=== PATIENT | female | born 2000 | race African-American/Black ===

== ENCOUNTER 2024-04-19 12:51 | Emergency (ER) | payer SELFPAY ==
--- NOTE | ~2024-04-19 | XR_ITS ---
EXAMINATION: XR CHEST CLINICAL INFORMATION: cough, fever COMPARISON: None available. TECHNIQUE: 2 views of the chest were obtained. FINDINGS: No consolidation, pleural effusion or pneumothorax. No hyperinflation. Cardiomediastinal silhouette size is normal. Osseous structures are intact. XR/XR chest 2V IMPRESSION: No acute airspace disease. Small airway inflammatory disease cannot be excluded. Electronically signed by: Charles Latham MD 04/19/2024 01:40 PM EST
[2024-04-19 13:02] VITALS: BP 156/79; PULSE 104; RESP 20; TEMP 38.5; O2SAT 100; BMI 31.1
--- NOTE | 2024-04-19 13:02 | ED_ITS ---
HPI - URI/Sore Throat General Chief Complaint: Upper Respiratory Symptoms Stated Complaint: Cold Symptoms Time Seen by Provider: 04/19/24 15:10 Source: patient Mode of arrival: ambulatory Limitations: no limitations History of Present Illness ED Provider: Elgin Jones DO HPI Narrative: 23-year-old female with past medical history of mild asthma, otherwise healthy, presents to the emergency department for 3 days of cough, body aches and fevers. Patient states she has not had her influenza vaccination. She states she has not had to provide breathing treatments at home. She denies vomiting or diarrhea. She denies sore throat. She states she has a decreased appetite but is tolerating liquids. Related Data Allergies Allergy/AdvReac Type Severity Reaction Status Date / Time oxycodone Allergy Angioedema Verified 04/19/24 13:04 Review of Systems Review of Systems: Yes all other systems are reviewed and are negative [facility] Social History Social History Advance Directives: No Advance Directives Information Provided: Yes Do you have a plan to hurt others: No Plan Physical Exam Vital Signs: Vital Signs: Last Vital Signs Temp 98.3 F 04/19/24 16:01 Pulse 86 04/19/24 16:01 Resp 16 04/19/24 16:01 BP 134/78 04/19/24 16:01 Pulse Ox 99 04/19/24 16:01 O2 Del Method Room Air 04/19/24 16:01 BMI result Body Mass Index 31.1 Constitutional: ?Alert, oriented, speaking in full sentences HEENT: ?Normocephalic, atraumatic. ?Moist mucous membranes Eyes: ?PERRL, EOMI Neck: ?Supple, nontender Chest: ?No chest wall tenderness Respiratory: ?Lungs clear to auscultation, no increased work of breathing Cardio: ?Regular rate and rhythm, no murmur, 2+ radial and DP pulses symmetrically GI: ?Soft, nondistended, nontender Back: ?Normal range of motion, nontender Skin: ?No rash, no lesions Neuro: ?Alert and oriented to person, place and time, moves all 4 extremities, no focal deficits Extremities: ?No swelling or tenderness, full range of motion Psych: ?Calm, alert and cooperative, appropriate behavior Course Course Course Narrative: This is a Rapid Medical Exam performed in triage by Deja Lai PA-C. Full HPI, ROS and PE to be performed by primary ED provider. 23 yo F presenting to the ED c/o sore throat, cough, [place], myalgias, fever (Tmax 100.2). PE: febrile, uvula midline, taking in complete sentences Plan: viral testing, rapid strep Medications Administered Discontinued Medications Generic Name Dose Route Start Last Admin Trade Name Mariam PRN Reason Stop Dose Admin Ibuprofen 400 mg 04/19/24 13:03 04/19/24 13:07 Ibuprofen 400 Mg Tablet PO 04/19/24 13:04 400 mg ONCE ONE Administration Medical Decision Making Medical Decision Making MDM Narrative: Patient presenting with viral symptoms. She is positive for influenza A. I discussed the importance of vaccination in the future. She is maintaining hydration status. Chest x-ray per my independent interpretation shows no acute cardiopulmonary abnormality. She is not experiencing an asthma exacerbation. She is not a candidate for Tamiflu and does not have any significant comorbidities. Work note provided as well as instructions to continue fluids at home and acetaminophen as needed. Her vital signs show mild tachycardia expected with a fever here. We provided ibuprofen. She has no hypoxia or tachypnea. Patient is comfortable with this plan and stable for discharge. Lab Data Labs: Lab Results 04/19/24 Range/Units 13:29 Influenza Type A (PCR) POSITIVE A (Negative) Influenza Type B (PCR) NEGATIVE (Negative) RSV RNA Qual (PCR) NEGATIVE (Negative) SARS-CoV-2 RNA (RT-PCR) NEGATIVE (Negative) S. pyogenes GrpA TYSHAWN Negative (Negative) Discharge Plan Discharge Clinical Impression: Influenza Patient Disposition: Home, Self-Care Instructions: Influenza (ED) Additional Instructions: You have been diagnosed with the flu today. Continue taking 500-1000 mg of Tylenol every 8 hours at home as needed for fevers and body aches. It is important to stay well hydrated, consume plenty of fluids with electrolytes. This should get better within a week or 2. If you feel the symptoms are worsening and you have fevers persistent over the next 5 days or so, worsening difficulty breathing or any other acute concerns, return for re-evaluation. Stand Alone Forms: Work/School Release Interventions: ED Discharge Assessment Last Done: 04/19/24 16:01 Discharge Date/Time: 04/19/24 16:02 Print Language: Algerian
[2024-04-19] MEDS: Ibuprofen 400 MG TABLET PO (13:07)
[2024-04-19 13:41] LABS: IDNOW Serial# 08D9AD1C; Strep A Nucleic Acid Negative (Negative)
[2024-04-19 14:21] LABS: Influenza A PCR POSITIVE (Negative); Influenza B PCR NEGATIVE (Negative); Resp Syncy Virus RNA Qual PCR NEGATIVE (Negative); SARS COV2 PCR INHOUSE NEGATIVE (Negative)
--- OUTSIDE RECORDS SUMMARY | 2024-04-19 14:56 | XMS_ITS | Encounter Summary ---
Author Organization [facility] Address [address] [place] [id number] Phone Care Team Providers Care Network Announcer Name Role Phone Yokasta Guzman MD Primary Care Provider [phone] Encounter Details Date Type Department Care Team (Late st Contact Info) Description 05/06/2017 Conversion Encounter [facility] [address] [phone] Jewell Coleman MD [address] [id number] Social History Tobacco Use Types Packs/Day Years Used Date Smoking Tobacco: Never Assessed Comments Unknown Sex and Gender Information Value Date Recorded Sex Assigned at Female 05/11/2019 12:02 PM EST Legal Sex Female 12:16 PM EST Gender Identity Female 05/11/2019 12:02 PM EST Sexual Orientation Straight 05/11/2019 12 :02 PM EST documented as of this encounter Plan of Treatment Not on file documented as of this encounter Visit Diagnoses Not on filedocumented in this encounter Care Teams Network Announcer Relationship Specialty Start Date End Date Yokasta Guzman MD [address] [place] [address] PCP - General Pediatrics 03/30/19 12/22/23 documented as of this encounter
--- OUTSIDE RECORDS SUMMARY | 2024-04-19 14:56 | XMS_ITS | Clinical Summary ---
Author Organization [facility] Address [address] [place] [id number] Phone Care Team Providers Care Horticultural Services Supervisor Name Role Phone Unavailable Primary Care Provider Unavailabl e Allergies Active Allergy Reactions Criticality Noted Date Comments Environmental 05/11/2019 Medications Spacer/Aero-Hold ing Chambers (ARIAL CHAMBER) device Aerochamber Plus Flow-Vu,Medium Mask Active loratadine (CLARITIN) 10 MG tabletIndication s:Acute seasonal allergic rhinitis due to pollen Take 1 tablet (10 mg total) by mouth daily. 30 tablet 5 9 Active fluticasone (FLONASE) 50 MCG/ACT nasal sprayIndications :Acute seasonal allergic rhinitis due to pollen Administer 1 spray into each nostril daily. 1 Units 5 9 Active Additional Information Patient not taking.Reported on 05/11/2019 VENTOLIN HFA 108 (90 Base) MCG/ACT inhalerIndicatio ns:Moderate persistent asthma without complication Inhale 2 puffs every 4 (four) hours as needed for wheezing or shortness of breath (cough, prolonged URI, respiratory difficulties). 1 Units 0 Active Additional Information Patient not taking.Reported on 10/23/2022 Beclomethasone Diprop HFA (Qvar RediHaler) 80 MCG/ACT aerosolIndicatio ns:Mild persistent asthma with acute exacerbation Inhale 2 Inhalers 2 (two) times a day. 3 Inhaler 4 0 Active Additional Information Patient not taking.Reported on 10/23/2022 Active Problems Problem Noted Date Diagnosed Date Left ankle injury 09/26/2020 Overview (09/26/2020): [facility] and inversion injury resolving 09/2020 Snoring 05/16/2019 Overview (07/25/2020): Sleep study scheduled 05/23/19. Cancelled due to COVID and needs to be re- scheduled. Was FU to adenoids being removed and evaluating if ANYA resolved per Dr Guzman.Pt has ANYA and requested sleep study be rescheduled today. Influenza vaccination declined 05/11/2019 Allergic rhinitis 07/12/2017 Overview (07/25/2020): On flonase and claritin as of 03/2019 Now on zyrtec 07/2020 Asthma 07/12/2017 Overview (07/25/2020): Qvar as of 03/2019. No prior hospitalization. Hasn't needed oral steroids. Triggered by cats, URIs, cold weather, seasonal allergies Still on QVAR and albuterol. Well controlled 07/2020 Assessment & Plan (05/11/2019 11:01 AM EST): Reviewed importance of nose spray, will schedule repeat sleep study due to concerns for apnea persisting Attention deficit hyperactiv ity disorder, predominantly inattentive type 07/12/2017 Overview (07/25/2020): 10 mg Focalin in past, as of 05/25 no meds No longer on meds. And doing well in school. Assessment & Plan (05/11/2019 12:01 PM EST): Rick has 504. Encouraged her to talk to school administration about what can be done about history class Eczema 07/12/2017 Overview (07/25/2020): Derm referral 05/25 Skin under good control per mom. Assessment & Plan (05/11/2019 12:01 PM EST): Will put in request for referral as requested Wears glasses 01/14/2017 Resolved Problems Problem Noted Date Diagnosed Date Resolved Date Injury of left great toe 10/04/2018 Assessment & Plan (10/04/2018 1:07 PM EDT): Xray verbal negative , pain management rest, avoid further injury Tinea pedis of both feet 10/04/2018 Assessment & Plan (10/04/2018 1:09 PM EDT): Pt education on athletes foot hand out Hyperhidrosis of palms and soles 10/04/2018 04/04/2019 Assessment & Plan (10/04/2018 1:06 PM EDT): Will discuss in greater detail next visit in 1 week Immunizations Immunization Administration Dates Next Due DTaP 05/26/2007, 5,01/02/2004,07/12,02/26/2003 HPV Vaccine 9 Valent 11/25/2015,11/13/2014 Hep A, ped/adol 11/25/2015,11/13/2014 Hep B, ped/adol 08/02/2003,01/26/2003,2002 Hib (PRP-T) 01/14/2005, 4,07/13/2003,02/26 IPV 05/26/2007, 4,07/13/2003,02/26 Influenza, injectable, quadr ivalent, preservative free 01/17/2018,01/14/2017,11/25/2015,12/20 Influenza, injectable, trivalent 014,02/07/2009,01/14/2005,01/01 MMR 05/26/2007,01/02/2004 Meningococcal Conj (Menactra) MCV4P 05/11/2019,0 11/13/2014 Pneumococcal Conjugate 05/20/2006,2004,01/02/2004,07/12 Tdap 11/13/2014 Varicella 05/26/2007,01/02/2004 Family History Medical History Relation Name Comments Asthma Maternal Grandfather Prostate cancer Maternal Grandfather No Known Problems Maternal Grandmother Asthma Mother Asthma Mother's Brother Hypertension Mother's Brother Diabetes Neg Hx Heart disease (Premature) Neg Hx Seizures Neg Hx Relation Name Status Comments Brother Alive Father Alive Maternal Grandfather Alive prostat e disease, brain tumor Maternal Grandmother Alive Mother Alive Mother's Brother migraines Other Hypertensive di sorder maternal side Paternal Grandfather Alive Paternal Grandmother Alive early o nset dementia Sister Alive Social History Tobacco Use Types Packs/Day Years Used Date Smoking Tobacco: Never Smokeless Tobacco: Never Comments:Never Alcohol Use Standard Drinks/Week Comments No 0 (1 standard drink = 0.6 oz pur e alcohol) Hunger/Food Answer Date Recorded In the last 12 months, did y ou or your family ever eat less than you felt you should because there wasn't enough money for food? No 07/25/2020 Stable Housing Answer Date Recorded Are you worried that in the next 2 months you may not have stable housing? Yes 07/25/2020 Transportation Concerns Answer Date Rec orded In the last 12 months, have you or your family ever had to go without healthcare because you didn't have a way to get there? No 07/25/2020 Hazards in Home Answer Date Recorded Think about the place you li ve. Do you have problems with any of the following? Pests (mice or roaches), mold, no/not working smoke detectors, water leaks, no window guards. Yes 2020 Financing Utilities Answer Date Recorde d In the last 12 months, has t he electric, gas, oil, or water company threatened to shut off your services in your home? No 07/25/2020 Safety at Home Answer Date Recorded Are you or your family worried about feeling saf e in your home? No 07/25/2020 Outside Support Answer Date Recorded Do you feel that you need mo re support from other people or programs to help you care for yourself or your family? No 07/25/2020 Understanding Health Concerns Answer Da te Recorded Do you need help understandi ng your or your child's healthcare needs (diagnosis, medications, plan, etc.)? No 07/25/2020 Financing Health Concerns Answer Date R ecorded In the last 12 months, was t here a time when your child needed to see a doctor or get medications or supplies but could not because of cost? No 07/25/2020 Missing School or Work Answer Date Pj rded Did you or your child miss s chool or work because of a health problem that could have been avoided? No 07/25/2020 Comments No Sex and Gender Information Value Date Recorded Sex Assigned at Female 05/11/2019 12:02 PM EST Legal Sex Female 12:16 PM EST Gender Identity Female 05/11/2019 12:02 PM EST Sexual Orientation Straight 05/11/2019 12 :02 PM EST Last Filed Vital Signs Vital Sign Reading Time Taken Comments Blood Pressure 116/78 10/23/2022 2:56 PM EDT Pulse 66 01/10/2019 10:16 AM EST Temperature 36.6 ??C (97.9 ??F) 09/30/2022 2:56 PM ED T Respiratory Rate - - Oxygen Saturation 99% 12/15/2018 9:49 AM EDT Inhaled Oxygen Concentration - - Weight 85.8 kg (189 lb 4 oz) 10/23/2022 2:56 PM EDT Height 167.6 cm (5' 6 ) 10/23/2022 2:56 PM EDT Body Mass Index 30.55 10/23/2022 2:56 PM EDT Plan of Treatment Health Maintenance Due Date Last Done Comments Men B Vaccine (1 of 2 - Standard) 2018 Influenza Vaccines (#1) 2023 01/18/20 18, 01/14/2017, 11/25/2015, Additional history exists COVID-19 Vaccine (1 - 2023-2 5 season) 2023 DTaP,Tdap,and Td Vaccines (7 - Td or Tdap) 11/13/2024 11/13/2014, 05/26/2007, 01/14/2005, Additional history exists Hepatitis B Vaccines Completed 08/02/2003, 01/26/2003, 2002 HIB Vaccines Completed 01/14/2005, 12/07, 07/13/2003, Additional history exists Pneumococcal Vaccine Completed 05/20/2006, 01/14/2005, 01/02/2004, Additional history exists IPV Vaccines Completed 05/26/2007, 12/07, 07/13/2003, Additional history exists MMR Vaccines Completed 05/26/2007, 01/02/2004 Varicella Vaccines Completed 05/26/2007, 01/02/2004 HPV Vaccines Completed 11/25/2015, 11/13/2014 Hepatitis A Vaccines Completed 11/25/2015, 11/14/19 Meningococcal Vaccine Completed 05/11/2019, 015 Procedures * Due to [place] state law, this organization might not be sharing sensitive test results. Procedure Name Priority Date/Time Associated Diagnosis Comments CHLAMYDIA AND GONORRHEA, AMPLIFIED Routine 07/25/2020 11:26 AM EDT Encounter for screening examination for sexually transmitted disease from Last 3 Months or Most Recently Relevant to Health Maintenance Results * Due to [facility] law, this organization might not be sharing sensitive test results. * Chlamydia and Gonorrhoea, Amplified (07/25/2020 11:26 AM EDT) Chlamydia Trachomatis, DNA Probe NEGATIVE (NEG) [facility] Comment: No Chlamydia Trachomatis RNA detected in this patient's sample ? (REFERENCE RANGE/NORMAL VALUE: NOT DETECTED) ? Note: This test uses dielectric embossing machine operator- mediated amplification method to detect rRNA from C. Trachomatis URINE GC AMP PROBE NEGATIVE (NEG) [facility] Comment: No Neisseria Gonorrhoeae RNA detected in this patient's sample ? (REFERENCE RANGE/NORMAL VALUE: NOT DETECTED) ? NOTE: This test uses dielectric embossing machine operator-mediated amplification method to detect rRNA from N.Gonorrhoeae. A negative result does not preclude infection. In the case of a negative urine result, testing of an endocervical(female) or urethral (male) specimen is recommended if there is high clinical suspicion of infection. Due to very high sensitivity of Nucleic Acid Amplification Test, false positive results may occur. Therefore, specimen handling is extremely important. In patients in whom the disease is unlikely, additional sample for testing should be considered after an initial positive result. The performance characteristics of this test have not been evaluated in children. The Aptima Combo2 assay is not intended for the evaluation of suspected sexual abuse or for other medico-legal indications. The ordering provider should assess if the patient had consensual sex without risk of sexual abuse. Consult the [facility] if needed. Contact phone number . Therapeutic failure or success cannot be determined with the Aptima Combo2 assay since nucleic acid may persist following appropriate antimicrobial therapy. The Centers for Disease Control and Prevention (CDC) recommends confirmatory retesting using culture or a different nucleic acid amplification test when positive results occur, if indicated. Testing performed or reported by [facility], a Service of [facility], [address] [place] [address] Trae Murrell MD, Foster Care Therapist Urine (Urine) 07/25/2020 11: 26 AM EDT 07/25/2020 6:58 PM EDT Funmilayo Aguilar NP LAB MICROBIOLOGY - GENERAL ORD ERABLES Final Result [facility] from Last 3 Months or Most Recently Relevant to Health Maintenance Insurance [facility] Address: [address] [address] [place] [address] [facility] NON PCC [facility] NON PCC [facility]
--- OUTSIDE RECORDS SUMMARY | 2024-04-19 14:56 | XMS_ITS | Clinical Summary ---
Author Organization [facility] Address [address] [place] [address] Care Team Providers Care Systems Support Specialist Name Role Phone Unavailable Primary Care Provider Unavailabl e Social History Tobacco Use Types Packs/Day Years Used Date Smoking Tobacco: Never Assessed Comments Unknown Sex and Gender Information Value Date Recorded Sex Assigned at Not on file Legal Sex Female 5:59 PM EST Gender Identity Not on file Sexual Orientation Not on file Plan of Treatment Health Maintenance Due Date Last Done Comments Gonorrhea/Chlamydia Screening 2002 HPV Vaccines (1 - 3-dose series) 2017 DTaP,Tdap,and Td Vaccines (1 - Tdap) 2021 Hepatitis B Vaccines (1 of 3 - 19+ 3-dose series) 2021 COVID-19 Vaccine ( - 2023-2 5 season) 2023 Influenza Vaccine (#1) 2023 Cervical Cancer Screening: P ap Smear 12/26/2023 HIB Vaccines Aged Out No longer eligi ble based on patient's age to complete this topic Hepatitis A Vaccines Aged Out No long er eligible based on patient's age to complete this topic IPV Vaccines Aged Out No longer eligi ble based on patient's age to complete this topic MMR Vaccines Aged Out No longer eligi ble based on patient's age to complete this topic Meningococcal ACWY Vaccine Aged Out N o longer eligible based on patient's age to complete this topic Pneumococcal Vaccine: Pediat rics (0 to 5 Years) and At-Risk Patients (6 to 64 Years) Aged Out No longer eligible b ased on patient's age to complete this topic RSV Immunization Patients Un syeda 20 months Aged Out No longer eligible b ased on patient's age to complete this topic Varicella Vaccines Aged Out No longer eligible based on patient's age to complete this topic
[2024-04-19 15:49] VITALS: BP 134/78; PULSE 86; RESP 16; TEMP 36.8
[2024-04-19 16:01] VITALS: BP 134/78; PULSE 86; RESP 16; TEMP 36.8; O2SAT 99
== END 2024-04-19 16:02 | disposition home or self-care (01) ==
PROVIDERS: Physician Assistant; Emergency Provider Emergency Medicine
DX: J10.1 Influenza due to other identified influenza virus with other respiratory manifestations (principal); R05.9 Cough, unspecified; M79.10 Myalgia, unspecified site; R50.9 Fever, unspecified; Z03.818 Encounter for observation for suspected exposure to other biological agents ruled out
CPT/HCPCS: 0241U; 71046; 87651; 99283

== ENCOUNTER → 2024-04-19 13:06 | Outpatient (BNV) | payer SELFPAY | PROVIDERS: Visit Provider Radiology Diagnostic Radiology | DX: R05.9 Cough, unspecified (principal); R50.9 Fever, unspecified | CPT/HCPCS: 71046 ==